=== PATIENT | female | born 1945 | race Asian ===

== ENCOUNTER 2023-01-05 13:50 | Outpatient (CLI) | payer BC | END 2023-01-05 22:29 | disposition home or self-care (01) | LOC: MRI 13:50 | PROVIDERS: ATTEND Nurse Practitioner Family | DX: F03.90 Unspecified dementia, unspecified severity, without behavioral disturbance, psychotic disturbance, mood disturbance, and anxiety (principal) ==

== ENCOUNTER 2023-05-18 10:37 | Outpatient (CLI) | payer BC ==
[2023-05-18 12:19] LABS: PLATELET COUNT 233 K/uL (152-353)
== END 2023-05-18 22:21 | disposition home or self-care (01) ==
LOC: US 10:37
PROVIDERS: ATTEND Nurse Practitioner Family
DX: I73.9 Peripheral vascular disease, unspecified (principal); M79.671 Pain in right foot; E78.2 Mixed hyperlipidemia; E55.9 Vitamin D deficiency, unspecified
CPT/HCPCS: 36415; 80053; 80061; 82306; 82607; 84443; 85027